=== PATIENT | female | born 1955 | race Caucasian/White ===

== ENCOUNTER → 2018-06-23 | Outpatient (CLI) | payer BC ==
[2016-01-03 12:00] VITALS: BP 125/62
[~2018-06-23] MED LIST: [UNRECOGNIZED DRUG - OTHER]
[2018-06-23 12:34] LABS: CALCIUM 9.7 mg/dL (8.5-10.1); CREATININE 1.1 mg/dL (0.6-1.0); GFR 50.3; MAGNESIUM 2.1 mg/dL (1.8-2.4); POTASSIUM 3.9 mmol/L (3.5-5.1)
== END | disposition home or self-care (01) ==
LOC: LAB 11:42
PROVIDERS: ATTEND Internal Medicine
DX: E53.8 Deficiency of other specified B group vitamins (principal); E55.9 Vitamin D deficiency, unspecified; R25.2 Cramp and spasm; D64.9 Anemia, unspecified
CPT/HCPCS: 36415; 80048; 82306; 82607; 82728; 83540; 83550; 83735